=== PATIENT | male | born 1985 | race Caucasian/White ===

== ENCOUNTER 2021-01-12 11:48 | Emergency (ER) | payer OTHER ==
[~2021-01-12] VITALS: Ht 167.6 cm; Wt 63.6 kg
[~2021-01-12 11:48] MED LIST: DIVA-112 PO; OLAN10TA74 PO
[2021-01-12 12:48] LABS: COVID AG,FIA SOURCE NASOPHARYNGEAL
[2021-01-12 14:11] LABS: BASOPHILS % (AUTO) 0.6 % (0.0-2.0); EOSINOPHILS % (AUTO) 0.5 % (1.0-6.0); HEMOGLOBIN 16.9 g/dL (13.5-17.5); LYMPHOCYTES # (AUTO) 1.5 K/uL (1.0-4.8); LYMPHOCYTES % (AUTO) 15.3 % (22.0-44.0); MEAN CORPUSCULAR HEMOGLOBIN 30.3 pg (26.0-34.0); MEAN CORPUSCULAR HGB CONC 33.8 G/dL (31.0-37.0); MEAN CORPUSCULAR VOLUME 90 fL (80-100); MONOCYTES # (AUTO) 0.5 K/uL (0.1-1.0); MONOCYTES % (AUTO) 4.6 % (2.0-9.0); NEUTROPHILS # (AUTO) 7.8 K/uL (1.8-7.7); PLATELET COUNT (AUTO) 206 K/uL (150-450); RED BLOOD CELL COUNT(AUTO) 5.56 MIL/uL (4.50-5.90); RED CELL DISTRIBUTION WIDTH 14.4 % (11.5-14.5)
[2021-01-12 14:18] LABS: ANION GAP 7 mmol/L (8-16); CALCIUM, TOTAL 9.1 mg/dL (8.8-10.5); CARBON DIOXIDE 29 mmol/L (22-29); CHLORIDE 103 mmol/L (98-107); CREATININE 0.93 mg/dL (0.60-1.30); GLOMERULAR FILTR. RATE CALC > 60 mL/min (>60); GLUCOSE,RANDOM 102 mg/dL (70-110); POTASSIUM 4.9 mmol/L (3.5-5.1); SODIUM SERUM 139 mmol/L (136-145); UREA NITROGEN, BLOOD 8 mg/dL (7-18)
[2021-01-12 14:23] LABS: ALANINE AMINOTRANSFERASE 24 U/L (12-78); ALKALINE PHOSPHATASE 69 U/L (46-116); ASPARTATE AMINOTRANSFERASE 16 U/L (15-37); BILIRUBIN,TOTAL 0.9 mg/dL (0.1-1.0); TOTAL PROTEIN, SERUM 7.2 g/dL (6.4-8.2)
[2021-01-12 17:55] LABS: VALPROIC ACID < 3 mcg/mL (50-100)
[2021-01-12 18:16] LABS: AMPHET/METH SCREEN,URINE NEGATIVE (NEGATIVE); BARBITURATE SCREEN, URINE NEGATIVE (NEGATIVE); BENZODIAZEPINES SCREEN,URINE NEGATIVE (NEGATIVE); CANNABINOID SCREEN,URINE NEGATIVE (NEGATIVE); COCAINE SCREEN,URINE NEGATIVE (NEGATIVE); METHADONE SCREEN, URINE NEGATIVE (NEGATIVE); OPIATE SCREEN,URINE NEGATIVE (NEGATIVE)
[2021-01-12 18:23] LABS: PHENCYCLIDINE SCREEN,URINE NEGATIVE (NEGATIVE)
[2021-01-12 23:52] VITALS: BP 119/76
== END 2021-01-13 01:12 | disposition short-term general hospital (02) ==
LOC: EMS 11:50
DX: F20.0 Paranoid schizophrenia (principal); R45.851 Suicidal ideations; F17.210 Nicotine dependence, cigarettes, uncomplicated; Z20.822 Contact with and (suspected) exposure to COVID-19
CPT/HCPCS: 36415; 80053; 80164; 80307; 85025; 87426; 99285; G0480

== ENCOUNTER 2023-03-27 13:44 | Emergency (ER) | payer OTHER ==
[~2023-03-27] VITALS: Ht 167.6 cm; Wt 61.4 kg
[2023-03-27 13:53] VITALS: TEMP 97.7
[2023-03-27] MEDS ORDERED: ACET-2080 PO (16:11)
[2023-03-27] MEDS ORDERED: IBUP-1554 PO (16:11)
[2023-03-27] MEDS ORDERED: AMOX500C2 PO (16:11)
[2023-03-27 16:46] VITALS: BP 112/62; PULSE 70; RESP 16
== END 2023-03-27 16:56 | disposition home or self-care (01) ==
LOC: EMS 13:52
DX: K04.7 Periapical abscess without sinus (principal); F20.9 Schizophrenia, unspecified; F17.210 Nicotine dependence, cigarettes, uncomplicated; F15.90 Other stimulant use, unspecified, uncomplicated
CPT/HCPCS: 99283; Z7502

== ENCOUNTER 2023-04-15 16:19 | Emergency (ER) | payer OTHER ==
[~2023-04-15] VITALS: Ht 167.6 cm; Wt 61.4 kg
[~2023-04-15 16:19] MED LIST changes: +ACET-2080 PO; +AMOX500C2 PO; +IBUP-1554 PO
[2023-04-15 16:21] VITALS: TEMP 98.3
[2023-04-15] MEDS ORDERED: AMOX1TAB16 PO (17:04)
[2023-04-15] MEDS ORDERED: TRAM-559 PO (17:04)
[2023-04-15 17:30] VITALS: BP 115/65; PULSE 86; RESP 12
== END 2023-04-15 17:40 | disposition home or self-care (01) ==
LOC: EMS 16:22
DX: K08.89 Other specified disorders of teeth and supporting structures (principal); F20.9 Schizophrenia, unspecified; F17.210 Nicotine dependence, cigarettes, uncomplicated
CPT/HCPCS: 99283; Z7502

== ENCOUNTER 2025-01-05 20:39 | Emergency (ER) | payer OTHER ==
[~2025-01-05] VITALS: Ht 167.6 cm; Wt 63.6 kg
[~2025-01-05 20:39] MED LIST changes: -ACET-2080 PO; -AMOX500C2 PO; -DIVA-112 PO; +FAMO20 PO; +HYDR-4808 PO; -IBUP-1554 PO; +MIRT-93 PO; +OLAN20TA82 PO
[2025-01-05 20:50] VITALS: TEMP 98.8
[2025-01-06] MEDS: IBUPROFEN 400 MG TABLET PO ONE (01:12)
[2025-01-06] MEDS: OFLOXACIN 0.3% 5 ML OTIC SOLUTION AS ONE (01:12)
[2025-01-06 01:15] VITALS: BP 115/71; PULSE 81; RESP 16; O2SAT 100
== END 2025-01-06 01:18 | disposition home or self-care (01) ==
LOC: EMS 20:39
DX: H92.12 Otorrhea, left ear (principal); F20.9 Schizophrenia, unspecified; F17.210 Nicotine dependence, cigarettes, uncomplicated; Z79.899 Other long term (current) drug therapy
CPT/HCPCS: 99283